=== PATIENT | male | born 1960 | race Caucasian/White ===

== ENCOUNTER → 2021-08-07 | Outpatient (CLI) | payer MEDICARE | END | disposition home or self-care (01) | LOC: STAR 14:08 | PROVIDERS: ATTEND Surgery | DX: Z01.812 Encounter for preprocedural laboratory examination (principal); Z20.822 Contact with and (suspected) exposure to COVID-19; T87.9 Unspecified complications of amputation stump; R94.31 Abnormal electrocardiogram [ECG] [EKG] ==